=== PATIENT | male | born 1965 | race Caucasian/White ===

== ENCOUNTER 2019-07-19 10:35 | Emergency (ER) | payer MEDICAID, OTHER ==
[~2019-07-19] VITALS: Ht 162.6 cm; Wt 87.0 kg
[~2019-07-19 10:35] MED LIST: CLIN300C10 PO; HYDR-3980 PO; IBUP800T48 PO; NALO4SPR NS
[2019-07-19 10:38] VITALS: Ht 162.6 cm; Wt 87.0 kg
[2019-07-19] MEDS ORDERED: CLINDAMYCIN 300 MG CAP PO ONE (11:30)
[2019-07-19] MEDS ORDERED: IBUPROFEN 800 MG TAB PO ONE (11:30)
[2019-07-19 11:53] VITALS: BP 179/94; PULSE 68; RESP 20
== END 2019-07-19 11:55 | disposition home or self-care (01) ==
LOC: E/R 10:35
DX: L03.211 Cellulitis of face (principal)
CPT/HCPCS: 82962; Z7502; Z7610; 99283